=== PATIENT | male | born 1970 | race Caucasian/White ===

== ENCOUNTER 2017-02-07 18:51 | Emergency (ER) | payer OTHER ==
[2017-02-07 19:09] VITALS: BP 147/89; PULSE 70; RESP 18; TEMP 97.7; O2SAT 99
[2017-02-07] MEDS ORDERED: AMOXICILLIN/CLAVULANATE POT 875/125 MG TAB PO ONE ×2 (19:47)
[2017-02-07] MEDS ORDERED: PSEUDOEPHEDRINE HCL 30 MG TAB PO ONE (19:48)
--- NOTE | 2017-02-07 19:50 | EDPHY ---
H & P Stated Complaint: congestion sinus pressure, brennan Time Seen by Provider: 02/07/17 19:13 HPI/ROS: CHIEF COMPLAINT: Sinus pressure HISTORY OF PRESENT ILLNESS: 46-year-old male presents emergency department complaining of headache, left-sided sinus pressure, subjective fevers and chills x3 days. Patient reports a 3 month history of URI symptoms with nasal congestion, mild cough, intermittent body aches. Patient has been taking homeopathic medications for his symptoms and reports his symptoms are worsening , pressure in his ears, head pressure that is worse with bending over. He denies blurred vision, no neck pain. No shortness of breath or chest pain. Headache is mild in nature, mildly relieved after doing a saline nasal rinse. REVIEW OF SYSTEMS: A comprehensive 10 point review of systems is otherwise negative aside from elements mentioned in the history of present illness. Source: Patient Exam Limitations: No limitations - Personal History Current Tetanus/Diphtheria Vaccine: Yes Current Tetanus Diphtheria and Acellular Pertussis (TDAP): Yes - Medical/Surgical History Hx Asthma: No Hx Chronic Respiratory Disease: No Hx Diabetes: No Hx Cardiac Disease: No Hx Renal Disease: No Hx Cirrhosis: No Hx Alcoholism: No Hx HIV/AIDS: No Hx Splenectomy or Spleen Trauma: No - Social History Smoking Status: Never smoked - Physical Exam Exam: General: Alert, nontoxic. ENT: Left TM with mild bulging, mild erythema, right TM normal, external auditory canal, external ear and surrounding soft tissue including over the mastoid unremarkable. Nasopharynx is injected, there is no rhinorrhea. Oropharynx with mild erythema no edema. There is no exudate. There is postnasal drip to posterior pharynx. No tonsillar hypertrophy. No asymmetry. The uvula is midline. No elevation of tongue. There is no hoarseness. No drooling, patient has good control of their oral secretions. No trismus. No stridor. Cardiac: Regular rate and rhythm. Respiratory: Lungs clear to auscultation bilaterally. Neurological: no meningismus. Skin: No rashes. Constitutional: Initial Vital Signs Temperature (C) 36.5 C 02/07/17 19:05 Heart Rate 70 02/07/17 19:05 Respiratory Rate 18 02/07/17 19:05 Blood Pressure 147/89 H 02/07/17 19:05 O2 Sat (%) 99 02/07/17 19:05 O2 Delivery Mode Room Air Allergies/Adverse Reactions: No Known Allergies Allergy (Unverified 02/26/13 20:26) Home Medications: Medication Instructions Recorded Amoxicillin/Clavulanate Pot 875 mg PO BID #20 tab 02/07/17 [Augmentin 875Mg] Claritin 02/07/17 Fluticasone Nasal [Flonase Nasal 1 sprays NASAL DAILY #1 mdi 02/07/17 [place] (RX)] Medical Decision Making Differential Diagnosis: Diagnosis considered but not limited to allergic rhinitis, bacterial sinusitis, viral sinusitis, dental abscess Departure - Departure Disposition: Home, Routine, Self-Care Clinical Impression: Sinusitis, acute Qualifiers: Sinusitis location: maxillary Recurrence: non-recurrent Qualified Code(s): J01.00 - Acute maxillary sinusitis, unspecified Condition: Good Instructions: Sinusitis (ED) Additional Instructions: You can take 600 mg of ibuprofen every 8 hours with food, 650 mg of Tylenol every 8 hours as needed for pain. Take Augmentin 1 pill twice daily for 10 days. Use 1 spray of Flonase in each nostril daily, take [id number] Sudafed and Mucinex as prescribed, use saline nasal rinse. Humidifier at night. Drink plenty of fluids. Follow up with the Ear Nose and Throat doctor for continued symptoms, return to the emergency department for worsening symptoms, new symptoms or concerns. Referrals: Vandana Rodriguez MD [Medical Doctor] - As per Instructions (ent hvac services professional) Prescriptions: Amoxicillin/Clavulanate Pot [Augmentin 875Mg] 875 mg PO BID #20 tab Fluticasone Nasal [Flonase Nasal [place] (RX)] 1 sprays NASAL DAILY #1 mdi
== END 2017-02-07 19:50 | disposition home or self-care (01) ==
DX: J01.00 Acute maxillary sinusitis, unspecified (principal)

== ENCOUNTER 2017-09-30 21:59 | Emergency (ER) | payer OTHER ==
[2017-09-30 22:08] VITALS: RESP 16; TEMP 97.5
--- NOTE | 2017-09-30 22:16 | EDPHY ---
H & P Stated Complaint: 10mg THC edible @1830, N/shaky/heart palps - Personal History Current Tetanus/Diphtheria Vaccine: Yes - Medical/Surgical History Hx Asthma: No Hx Chronic Respiratory Disease: No Hx Diabetes: No Hx Cardiac Disease: No Hx Renal Disease: No Hx Cirrhosis: No Hx Alcoholism: No Hx HIV/AIDS: No Hx Splenectomy or Spleen Trauma: No Other PMH: denies - Social History Smoking Status: Never smoked HPI/ROS: CHIEF COMPLAINT: Palpitations and anxiety after THC ingestion HISTORY OF PRESENT ILLNESS: The patient is a 46 y/o male complaining of palpitations after consuming a 10mg THC edible at 18:30, almost 4 hours ago. He complains of associated nausea, shakiness, and severe anxiety. He felt normal prior to THC use. This is the second time he's used THC and he has never taken this dose. No dyspnea, lightheadedness, fever, recent illness, or recent trauma. He denies any cardiac disease history. REVIEW OF SYSTEMS: Constitutional: No fever, no chills Eyes: No visual changes ENT: No sore throat Respiratory: No cough, no shortness of breath Cardiac: No chest pain Gastrointestinal: no vomiting, no abdominal pain Genitourinary: no dysuria Musculoskeletal: No leg pain or swelling Skin: No rash Neurological: No headache, no numbness, no weakness Psychiatric: No depression (Beulah Barnett) - Medical/Surgical History PMH: PMH includes: Sinusitis Prior medical records reviewed including ED visit 02/07/17 for sinusitis. (Beulah Barnett) - Social History Additional Social History: Nonsmoker. Lives in [place]. Employed. (Beulah Barnett) - Physical Exam Exam: General Appearance: Alert, no distress Eyes: Pupils equal and round, no conjunctival pallor or injection ENT, Mouth: Mucous membranes moist Neck: Normal inspection Respiratory: Lungs are clear to auscultation Cardiovascular: Regular rate and rhythm Gastrointestinal: Abdomen is soft and non- tender Neurological: A&O, nonfocal, normal gait Skin: Warm and dry, no rash Extremities: Nontender, no pedal edema Psychiatric: Mood and affect anxious (Beulah Barnett) Constitutional: Initial Vital Signs Temperature (C) 36.4 C 09/30/17 22:05 Heart Rate 76 09/30/17 22:05 Respiratory Rate 16 09/30/17 22:05 Blood Pressure 115/73 09/30/17 22:05 O2 Sat (%) 100 09/30/17 22:05 O2 Delivery Mode Room Air Allergies/Adverse Reactions: No Known Allergies Allergy (Verified 09/30/17 22:08) Home Medications: Medication Instructions Recorded NK [No Known Home Meds] 09/30/17 Medical Decision Making ED Course/Re-evaluation: 1:00 a.m.- The patient remained stable during my shift. He began to feel more awake and alert. He was able to walk to the bathroom without difficulty. He will be discharged home. (Annette Iverson) This is a healthy 46 y/o male who presents with anxiety and the sensation of palpitations after consuming a 10mg THC edible 4 hours ago. Apart from appearing anxious, he has a completely normal exam and normal vitals. His presentation is consistent with THC-induced paranoia and anxiety. Plan for IV, EKG, and symptom management. 0.5mg IV Ativan and 1L IV NS administered. The 12 lead EKG was interpreted by myself. Sinus rhythm rate 81. See hard copy and/or "tracemaster" electronic copy for interpretation. 11pm: sleeping comfortably. Signed over to Dr. Iverson at shift change. Plan to observe pt in ED. Once feels better, will d/c home. (Beulah Barnett) Differential Diagnosis: includes though not limited to dysrhythmia, polysubstance abuse, hypoglycemia, anxiety (Beulah Barnett) - Data Points Medications Given: Discontinued Medications Sodium Chloride (Ns) 1,000 mls @ 0 mls/hr IV ONCE ONE; Wide Open PRN Reason: Protocol Stop: 09/30/17 22:21 Last Admin: 09/30/17 22:49 Dose: 1,000 mls Lorazepam (Ativan Injection) 0.5 mg IVP EDNOW ONE Stop: 09/30/17 22:21 Last Admin: 09/30/17 22:49 Dose: 0.5 mg Departure - Departure Disposition: Home, Routine, Self-Care Clinical Impression: Palpitations, Anxiety, THC paranoia Condition: Good Instructions: Heart Palpitations (ED), Anxiety (ED) Additional Instructions: Avoid THC use. Follow up with your primary care provider for unimproved symptoms over the next couple days. Referrals: WILMER,RAUL [Other] - As per Instructions Report Scribed for: Beulah Barnett Report Scribed by: Monisha Clemons Date of Report: 09/30/17 Time of Report: 22:11 Physician Review and Approval Statement: 09/30/17 22:11 Portions of this note were transcribed by a medical and health services manager. I personally performed a history, physical exam, medical decision making, and confirmed accuracy of information the transcribed note. (Beulah Barnett)
[2017-09-30] MEDS ORDERED: LORazepam 2 MG/ML INJ IVP ONE (22:20)
[2017-09-30] MEDS ORDERED: NS 1,000 ML IV ONE ×2 (22:20→22:41)
--- NOTE | 2017-09-30 22:24 | CPEKG ---
Heart Rate: 81 RR Interval: 741 P-R Interval: 172 QRSD Interval: 96 QT Interval: 388 QTC Interval: 451 P [place]: 68 QRS [place]: 72 T Wave [place]: 56 EKG Severity - NORMAL ECG - EKG Impression: SINUS RHYTHM Electronically Signed By: Beulah Barnett 30-Sep-2017 23:14:11
[2017-10-01 01:23] VITALS: BP 126/85; PULSE 80; O2SAT 97
== END 2017-10-01 01:24 | disposition home or self-care (01) ==
DX: F41.9 Anxiety disorder, unspecified (principal); F22 Delusional disorders; E86.9 Volume depletion, unspecified
CPT/HCPCS: 96374; J2060